=== PATIENT | male | born 1950 | race Caucasian/White ===

== ENCOUNTER → 2017-02-12 | Outpatient (CLI) | payer OTHER ==
[~2017-02-12] MED LIST: ALDACTONE25 MG PO; APRESOLINE10 MG PO; COUMADIN5 MG PO; HALFPRIN81 MG PO; IMDUR30 MG PO; LIPITOR10 MG PO; TENORMIN25 MG PO; TIKOSYN125 MCG PO
== END | disposition short-term general hospital (02) ==
LOC: CLCARD 10:22
DX: I49.5 Sick sinus syndrome (principal); I25.10 Atherosclerotic heart disease of native coronary artery without angina pectoris; I25.5 Ischemic cardiomyopathy; I11.0 Hypertensive heart disease with heart failure; I50.22 Chronic systolic (congestive) heart failure; I50.1 Left ventricular failure, unspecified; I48.0 Paroxysmal atrial fibrillation; Z79.01 Long term (current) use of anticoagulants

== ENCOUNTER → 2017-02-15 | Outpatient (CLI) | payer OTHER | END | disposition short-term general hospital (02) | LOC: CLCARD 04:41 | DX: I48.0 Paroxysmal atrial fibrillation (principal); I48.92 Unspecified atrial flutter; I44.7 Left bundle-branch block, unspecified; I25.5 Ischemic cardiomyopathy; I25.10 Atherosclerotic heart disease of native coronary artery without angina pectoris; I10 Essential (primary) hypertension; I25.2 Old myocardial infarction; Z95.1 Presence of aortocoronary bypass graft; Z95.0 Presence of cardiac pacemaker ==